=== PATIENT | male | born 1985 | race Caucasian/White ===

== ENCOUNTER 2021-01-18 07:29 | Inpatient (IN) | payer OTHER ==
[~2021-01-18] VITALS: Ht 200.7 cm; Wt 193.2 kg
--- NOTE | 2021-01-18 07:50 | NUR ---
Pt arrived, PA saw pt, EKG completed by tech. Pt updated on [employer].
[2021-01-18] MEDS ORDERED: HYDROmorphone 1 MG/ML, 1ML INJ IV ONE ×2 (08:00→10:30)
[2021-01-18] MEDS ORDERED: MAALOX/HYOSCYAMINE/LIDOCAINE 45 ML BTL PO ONE (08:00)
[2021-01-18] MEDS ORDERED: ONDANSETRON 2MG/ML, 2ML IVPush ONE (08:00)
[2021-01-18] MEDS ORDERED: PLEASE ENTER ALLERGIES MC SCH (08:00)
[2021-01-18] MEDS ORDERED: SODIUM CHLORIDE FLUSH 10ML SYR IVF ONE (08:00)
[2021-01-18] MEDS ORDERED: HYDROmorphone 1 MG/ML, 1ML INJ ONE (08:15)
[2021-01-18] MEDS ORDERED: ONDANSETRON 2MG/ML, 2ML ONE (08:16)
[2021-01-18] MEDS ORDERED: MAALOX/HYOSCYAMINE/LIDOCAINE 45 ML BTL ONE (08:16)
[2021-01-18 08:26] LABS: BASOPHILS % (AUTO) 1 % (0-1); EOSINOPHILS % (AUTO) 3 % (1-7); LYMPHOCYTES % (AUTO) 16 % (22-44); MEAN CORPUSCULAR HEMOGLOBIN 30.7 pg (27.5-34.5); MEAN CORPUSCULAR HGB CONC 33.2 g/dL (33.2-36.2); MONOCYTES % (AUTO) 3 % (2-9); NEUTROPHILS % (AUTO) 79 % (42-75); PLATELET COUNT 327 x10^3/uL (130-400); RED BLOOD COUNT 5.68 x10^6/uL (4.38-5.82); RED CELL DISTRIBUTION WIDTH 15.5 % (9.4-14.8)
[2021-01-18 08:38] LABS: ALBUMIN 4.3 g/dL (3.4-5.0); ANION GAP 5 mmol/L (5-15); CALCIUM 9.7 mg/dL (8.5-10.1); CHLORIDE 104 mmol/L (98-107)
--- NOTE | 2021-01-18 08:41 | NUR ---
PA updated on pt bp after receving dilaudid and pt lisinopril at 0400 not much PO intake. 1L bolus ordered and started.
[2021-01-18 08:42] LABS: ALANINE AMINOTRANSFERASE 597 U/L (12-78); ALKALINE PHOSPHATASE 139 U/L (45-117); BILIRUBIN,TOTAL 6.9 mg/dL (0.2-1.0); CREATININE 1.57 mg/dL (0.7-1.3); TOTAL PROTEIN 8.2 g/dL (6.4-8.2)
--- NOTE | 2021-01-18 08:54 | NUR ---
ASSUMED CARE PT. IS RESTING WITH CP MONITOR IN PLACE. VITALS MONITORED. PT. STATES RELIEF FROM PAIN MEDS. NS BOLUS IS INFUSING. SIDERAILS REMAIN UP X 2 WITH THE CALL LIGHT IN PLACE.
[2021-01-18] MEDS ORDERED: SODIUM CHLORIDE 0.9% 1,000ML IVBOLUS ONE (09:00)
--- NOTE | 2021-01-18 09:13 | NUR ---
REPORT GIVEN TO ADAM SANDERSON. IV BOLUS RUNNING.
[2021-01-18] MEDS ORDERED: LISI-170 PO (09:25)
[2021-01-18] MEDS ORDERED: FLUT1DIS3 INH (09:25)
[2021-01-18] MEDS ORDERED: ALBU2TAB PO (09:26)
--- NOTE | 2021-01-18 10:38 | NUR ---
PT. WAS GIVEN GLYCERIN SWABS FOR ORAL COMFORT AND MEDICATED FOR PAIN. THE HOSPITALIST IS AT THE BEDSIDE. VITALS MONITORED. SIDERAILS REMAIN UP X [address] WITH THE CALL LIGHT IN PLACE.
--- NOTE | 2021-01-18 10:45 | NUR ---
REPORT CALLED TO MARCELLUS SANDERSON. VSS. READY FOR TRANSPORT.
[2021-01-18] MEDS ORDERED: hydrALAzine 20 MG/ML, 1ML IVPush PRN (11:00)
[2021-01-18] MEDS ORDERED: ACETAMINOPHEN 325 MG TABLET PO PRN (11:00)
[2021-01-18 12:02] VITALS: BP 108/68
[2021-01-18] MEDS: ONDANSETRON 2MG/ML, 2ML IVPush PRN ×2 (12:17→20:30)
[2021-01-18] MEDS: SODIUM CHLORIDE 0.9% 1,000 ML IV SCH ×2 (12:54→22:35)
[2021-01-18] MEDS: morphine SULFATE 10 MG/ML, 1ML IVPush PRN ×2 (15:50→20:29)
[2021-01-18] MEDS ORDERED: ALBUTEROL HFA 90 MCG/SPRAY INH PRN (16:30)
[2021-01-18 19:29] VITALS: BP 118/69
[2021-01-19] MEDS: morphine SULFATE 10 MG/ML, 1ML IVPush PRN ×2 (00:12→04:48)
[2021-01-19 00:46] VITALS: BP 125/60
[2021-01-19] MEDS: ONDANSETRON 2MG/ML, 2ML IVPush PRN (04:48)
[2021-01-19 06:07] LABS: BASOPHILS % (AUTO) 0 % (0-1); EOSINOPHILS % (AUTO) 0 % (1-7); LYMPHOCYTES % (AUTO) 8 % (22-44); MEAN CORPUSCULAR HEMOGLOBIN 30.2 pg (27.5-34.5); MEAN CORPUSCULAR HGB CONC 32.8 g/dL (33.2-36.2); MEAN PLATELET VOLUME 8.1 fL (7.4-10.4); MONOCYTES % (AUTO) 8 % (2-9); NEUTROPHILS % (AUTO) 83 % (42-75); PLATELET COUNT 262 x10^3/uL (130-400); RED BLOOD COUNT 4.99 x10^6/uL (4.38-5.82); RED CELL DISTRIBUTION WIDTH 15.6 % (9.4-14.8)
[2021-01-19 06:18] LABS: CHLORIDE 108 mmol/L (98-107)
[2021-01-19 06:27] LABS: ALANINE AMINOTRANSFERASE 383 U/L (12-78); ALBUMIN 3.5 g/dL (3.4-5.0); ALKALINE PHOSPHATASE 109 U/L (45-117); ANION GAP 5 mmol/L (5-15); BILIRUBIN,TOTAL 1.5 mg/dL (0.2-1.0); CALCIUM 8.5 mg/dL (8.5-10.1); CREATININE 0.86 mg/dL (0.7-1.3); TOTAL PROTEIN 6.8 g/dL (6.4-8.2)
[2021-01-19 07:53] VITALS: BP 131/78
[2021-01-19] MEDS: LISINOPRIL 20 MG TABLET PO SCH (08:42)
[2021-01-19] MEDS: SODIUM CHLORIDE 0.9% 1,000 ML IV SCH ×2 (08:44→21:59)
[2021-01-19] MEDS ORDERED: CHLORHEXIDINE 15 ML UDC ONE (09:01)
[2021-01-19] MEDS ORDERED: OMNIPAQUE 350 MG/ML, 50 ML BOTTLE ONE (09:19)
[2021-01-19] MEDS ORDERED: MIDAZOLAM 1 MG/ML, 2ML ONE (09:46)
[2021-01-19] MEDS ORDERED: FENTANYL PF 250 MCG/5ML ONE (09:49)
[2021-01-19] MEDS ORDERED: ACETAMINOPHEN 325 MG TABLET PO PRN (10:00)
[2021-01-19] MEDS ORDERED: OXYcodone 5 MG/5 ML ORAL.SOL UDC PO PRN (10:00)
[2021-01-19] MEDS ORDERED: FENTANYL PF 100 MCG/2ML IV PRN (10:00)
[2021-01-19] MEDS ORDERED: LABETALOL 5MG/ML, 20ML IV PRN (10:00)
[2021-01-19] MEDS ORDERED: MEPERIDINE/PF 25MG/0.5ML IVPush PRN (10:00)
[2021-01-19] MEDS ORDERED: hydrALAzine 20 MG/ML, 1ML IV PRN (10:00)
[2021-01-19] MEDS ORDERED: PROMETHAZINE 25 MG/ML, 1ML IVPush PRN (10:00)
[2021-01-19] MEDS ORDERED: ONDANSETRON 2MG/ML, 2ML IVPush PRN (10:00)
[2021-01-19] MEDS ORDERED: HYDROmorphone 1 MG/ML, 1ML INJ IVPush PRN (10:00)
[2021-01-19] MEDS ORDERED: DEXAMETHASONE 4 MG/ML, 5ML ONE (10:31)
[2021-01-19] MEDS ORDERED: PROPOFOL 10 MG/ML, 20ML ONE (10:57)
[2021-01-19] MEDS ORDERED: SUCCINYLCHOLINE 20 MG/ML, 10ML ONE (10:57)
[2021-01-19] MEDS ORDERED: ONDANSETRON 2MG/ML, 2ML ONE (10:57)
[2021-01-19 14:00] VITALS: BP 148/84
[2021-01-19 19:07] VITALS: BP 143/78
[2021-01-20 01:05] VITALS: BP 141/83
[2021-01-20 06:49] VITALS: BP 127/81
[2021-01-20] MEDS: LISINOPRIL 20 MG TABLET PO SCH (08:11)
[2021-01-20] MEDS: SODIUM CHLORIDE 0.9% 1,000 ML IV SCH (08:11)
[2021-01-20 12:41] VITALS: BP 130/77
[2021-01-20 19:45] VITALS: BP 128/76
[2021-01-21 00:49] VITALS: BP 119/74
[2021-01-21 06:39] VITALS: BP 134/80
[2021-01-21] MEDS: LISINOPRIL 20 MG TABLET PO SCH (07:36)
[2021-01-21] MEDS ORDERED: EPINEPHRINE 1 MG/ML, 1ML ONE (10:59)
[2021-01-21] MEDS ORDERED: BUPIVACAINE/PF 0.5% ONE (10:59)
[2021-01-21] MEDS ORDERED: MIDAZOLAM 1 MG/ML, 2ML ONE (11:25)
[2021-01-21] MEDS ORDERED: FENTANYL PF 250 MCG/5ML ONE (11:25)
[2021-01-21] MEDS ORDERED: OXYcodone 5 MG/5 ML ORAL.SOL UDC PO PRN (11:30)
[2021-01-21] MEDS ORDERED: ACETAMINOPHEN 325 MG TABLET PO PRN (11:30)
[2021-01-21] MEDS ORDERED: EPHEDRINE 50 MG/ML, 1ML IVPush PRN (11:30)
[2021-01-21] MEDS ORDERED: LABETALOL 5MG/ML, 20ML IV PRN (11:30)
[2021-01-21] MEDS ORDERED: hydrALAzine 20 MG/ML, 1ML IV PRN (11:30)
[2021-01-21] MEDS ORDERED: FENTANYL PF 100 MCG/2ML IV PRN (11:30)
[2021-01-21] MEDS ORDERED: ONDANSETRON 2MG/ML, 2ML IVPush PRN (11:30)
[2021-01-21] MEDS ORDERED: HYDROmorphone 1 MG/ML, 1ML INJ IVPush PRN (11:30)
[2021-01-21] MEDS ORDERED: PROMETHAZINE 25 MG/ML, 1ML IVPush PRN (11:30)
[2021-01-21] MEDS ORDERED: CHLORHEXIDINE 15 ML UDC PO ONE (11:30)
[2021-01-21] MEDS ORDERED: SUCCINYLCHOLINE 20 MG/ML, 10ML ONE (11:38)
[2021-01-21] MEDS ORDERED: LIDOCAINE-MPF 2% ,5ML ONE (11:38)
[2021-01-21] MEDS ORDERED: ROCURONIUM 10MG/ML,5ML ONE (11:38)
[2021-01-21] MEDS ORDERED: PROPOFOL 10 MG/ML, 20ML ONE (11:38)
[2021-01-21] MEDS ORDERED: ONDANSETRON 2MG/ML, 2ML ONE (11:38)
[2021-01-21] MEDS ORDERED: SUGAMMADEX 200 MG/2 ML IVPush ONE (11:39)
[2021-01-21] MEDS ORDERED: KETOROLAC 30 MG/1 ML ONE (11:39)
[2021-01-21] MEDS ORDERED: DEXAMETHASONE 4 MG/ML, 5ML ONE (11:39)
[2021-01-21] MEDS ORDERED: ALBUTEROL HFA 90 MCG/SPRAY ONE (12:10)
[2021-01-21 13:49] VITALS: BP 134/76
[2021-01-21] MEDS ORDERED: OXYC5TAB98 PO (16:38)
[2021-01-21] MEDS ORDERED: FLUTICASONE/VILANTEROL 200-25MCG/INH INH SCH (17:00)
[2021-01-21] MEDS ORDERED: ALBUTEROL HFA 90 MCG/SPRAY INH SCH (17:00)
== END 2021-01-21 18:07 | disposition home or self-care (01) | DRG 417 ==
LOC: ED 07:55 → SUATTDRO 10:22 → EDIP 10:24 → 4WST 10:59
PROVIDERS: ADMIT Internal Medicine; ATTEND Internal Medicine
PROC: BF131ZZ Fluoroscopy of Gallbladder and Bile Ducts using Low Osmolar Contrast (ICD-10-PCS; 2021-01-19)
PROC: 0FC98ZZ Extirpation of Matter from Common Bile Duct, Via Natural or Artificial Opening Endoscopic (ICD-10-PCS; principal; 2021-01-19 10:00)
PROC: 0FT44ZZ Resection of Gallbladder, Percutaneous Endoscopic Approach (ICD-10-PCS; 2021-01-21)
DX: K80.65 Calculus of gallbladder and bile duct with chronic cholecystitis with obstruction (principal); K85.10 Biliary acute pancreatitis without necrosis or infection; J96.01 Acute respiratory failure with hypoxia; R65.10 Systemic inflammatory response syndrome (SIRS) of non-infectious origin without acute organ dysfunction; Z68.41 Body mass index [BMI] 40.0-44.9, adult; K76.0 Fatty (change of) liver, not elsewhere classified; E66.01 Morbid (severe) obesity due to excess calories; Z20.822 Contact with and (suspected) exposure to COVID-19; I11.9 Hypertensive heart disease without heart failure; J45.909 Unspecified asthma, uncomplicated; E86.1 Hypovolemia; S00.11XA Contusion of right eyelid and periocular area, initial encounter; S00.81XA Abrasion of other part of head, initial encounter; W18.39XA Other fall on same level, initial encounter; Y93.89 Activity, other specified; Y92.89 Other specified places as the place of occurrence of the external cause; Y99.8 Other external cause status; N28.9 Disorder of kidney and ureter, unspecified; Z79.899 Other long term (current) drug therapy
CPT/HCPCS: 36415; 74328; 96361; 96374; 96375; 96376; 99291; J3490; S0020; 76700; 80053; 83036; 83690; 83735; 84100; 85025; 87635; 88304; 93005; 93306; 93356; G0378; J0171; J1100; J1170; J1885; J2250; J2405; J2704; J3010; Q9967; C1769; J0330; J2270; J7030